=== PATIENT | female | born 1990 | race Caucasian/White ===

== ENCOUNTER 2022-03-08 13:03 | Emergency (ER) | payer OTHER ==
[~2022-03-08] VITALS: Ht 157.5 cm; Wt 68.9 kg
--- NOTE | 2022-03-08 14:05 | NUR ---
DR VALENTIN W/ PT FOR EVAL
[2022-03-08] MEDS ORDERED: ALBUTEROL FS 2.5 MG/3 ML VIAL.NEB NEB ONE (14:30)
[2022-03-08] MEDS ORDERED: IPRATROPIUM NEB FS 0.5 MG/2.5 ML AMPUL.NEB NEB ONE (14:30)
[2022-03-08] MEDS ORDERED: ALBUTEROL FS 2.5 MG/3 ML VIAL.NEB ONE (14:39)
[2022-03-08] MEDS ORDERED: IPRATROPIUM NEB FS 0.5 MG/2.5 ML AMPUL.NEB ONE (14:39)
--- NOTE | 2022-03-08 16:30 | NUR ---
urine sample collected and sent to lab
[2022-03-08] MEDS ORDERED: BENZ-13 PO (18:07)
[2022-03-08] MEDS ORDERED: ALBU8.5H8 INH (18:07)
--- NOTE | 2022-03-08 18:13 | NUR ---
Patient discharged to home in stable condition. Written and verbal after care instructions given. Patient verbalizes understanding of instruction.
[2022-03-08 18:14] VITALS: BP 126/76
== END 2022-03-08 18:16 | disposition home or self-care (01) ==
LOC: ER 13:03
DX: R06.2 Wheezing (principal); U09.9 Post COVID-19 condition, unspecified; Z79.899 Other long term (current) drug therapy
CPT/HCPCS: 71045-TC; 84703-TC

== ENCOUNTER 2022-05-13 11:41 | Emergency (ER) | payer OTHER ==
[~2022-05-13] VITALS: Ht 157.5 cm; Wt 78.9 kg
[~2022-05-13 11:41] MED LIST: ALBU8.5H8 INH; BENZ-13 PO
--- NOTE | 2022-05-13 11:56 | NUR ---
BIBS C/O FELT "LIGHTHEADED" WHILE SITTING WAITING TO GO TO WORK. VITALS WITHIN NORMAL LIMITS. ABLE TO WALK WITHOUT ASSISTANCE. AWAITING MD MICHAEL.
[2022-05-13] MEDS ORDERED: IV NS 0.9% 1,000 ML BAG IV ONE (12:30)
--- NOTE | 2022-05-13 12:48 | NUR ---
IV ESTABLISHED L HAND 22. LABS DRAWNA ND COLLECTED AND BEDSIDE
[2022-05-13 12:53] LABS: BASOPHILS % (AUTO) 0.2 % (0.0-2.0); HEMATOCRIT 41 % (33-45); HEMOGLOBIN 12.9 g/dL (11.5-14.8); LYMPHOCYTES # (AUTO) 1.8 K/uL (0.8-4.8); LYMPHOCYTES % (AUTO) 29.1 % (20.0-44.0); MEAN CORPUSCULAR HGB CONC 31 g/dl (31.0-36.0); MEAN CORPUSCULAR VOLUME 85 fL (82-100); MONOCYTES # (AUTO) 0.6 K/uL (0.1-1.30); MONOCYTES % (AUTO) 9.1 % (2.0-12.0); NEUTROPHILS # (AUTO) 3.1 K/uL (1.8-8.9); NEUTROPHILS % (AUTO) 49.6 % (43.0-81.0); PLATELET COUNT (AUTO) 289 K/uL (150-450); RED BLOOD CELL COUNT(AUTO) 4.86 MIL/uL (4.0-5.2); WHITE BLOOD COUNT (AUTO) 6.2 K/uL (4.3-11.0)
[2022-05-13 13:10] LABS: CALCIUM, SERUM 9.3 mg/dL (8.5-10.1); CARBON DIOXIDE 24 mmol/L (21-32); CHLORIDE 105 mmol/L (98-107); CREATININE 0.9 mg/dL (0.6-1.3); GLUCOSE 87 mg/dL (74-106); POTASSIUM 3.5 mmol/L (3.5-5.1); SODIUM SERUM 139 mmol/L (136-145); UREA NITROGEN, BLOOD 11 mg/dL (7-18)
[2022-05-13 13:16] LABS: ALANINE AMINOTRANSFERASE 23 U/L (12-78); ALBUMIN 3.8 g/dL (3.4-5.0); ALKALINE PHOSPHATASE 90 U/L (46-116); ASPARTATE AMINOTRANSFERASE 21 U/L (15-37); BILIRUBIN,DIRECT 0.2 mg/dL (0.0-0.2); BILIRUBIN,TOTAL 0.5 mg/dL (0.2-1.0); TOTAL PROTEIN, SERUM 8.4 g/dL (6.4-8.2)
--- NOTE | 2022-05-13 15:42 | NUR ---
Updated by MD Verbal instructions by same. Pt given copies of all test Declined to wait/sign for [facility] "i have to go"
[2022-05-13 15:43] VITALS: BP 125/70
== END 2022-05-13 15:45 | disposition home or self-care (01) ==
LOC: ER 11:48
DX: R55 Syncope and collapse (principal); Z79.899 Other long term (current) drug therapy; Z60.2 Problems related to living alone
CPT/HCPCS: 99285; 96360; 71045; 93005; 85025; 80048; 80076; 36415; 84484; J7030

== ENCOUNTER 2022-08-07 12:27 | Emergency (ER) | payer OTHER ==
[~2022-08-07] VITALS: Ht 157.5 cm; Wt 77.1 kg
--- NOTE | 2022-08-07 12:55 | NUR ---
EVERC/O SORE THROAT, FEVER AND CHILLS X 7 DAYS, SEEN A MD GAVE AMOX AND TYLENOL FOR FEVER.
--- NOTE | 2022-08-07 13:08 | NUR ---
URINE PROVIDED , SENT TO LAB
--- NOTE | 2022-08-07 13:12 | NUR ---
DR. BETANCOURT AT BEDSIDE FOR EVAL.
--- NOTE | 2022-08-07 13:28 | NUR ---
THROAT SWAB FOR STD DONE , SENT TO LAB.
[2022-08-07] MEDS ORDERED: CEFTRIAXONE 1 G VIAL IM ONE (13:30)
[2022-08-07] MEDS ORDERED: CEFTRIAXONE 1 G VIAL ONE (13:30)
[2022-08-07 13:32] LABS: BILIRUBIN,URINE 1+ (NEGATIVE); COLOR,URINE DARK YELLOW (YELLOW); LEUKOCYTE ESTERASE ,URINE NEGATIVE (NEGATIVE); NITRITE, URINE NEGATIVE (NEGATIVE); PROTEIN,URINE 3+ mg/dl (NEGATIVE); UGLUCOSE NEGATIVE (NEGATIVE)
--- NOTE | 2022-08-07 13:38 | NUR ---
Patient is resting comfortably in bed with eyes closed. Easily aroused. VSS
--- NOTE | 2022-08-07 13:47 | NUR ---
STREP SWAB DONE, GEN. SWAB FOR THROAT DONE , SENT TO LAB
[2022-08-07 13:55] LABS: RBC,URINE 0-3 /HPF (0-2)
[2022-08-07 13:56] LABS: BACTERIA,URINE 1+ /HPF (None Seen); SQUAMOUS EPITHELIAL CELL,UR Moderate /HPF (None Seen)
[2022-08-07] MEDS ORDERED: DOXY100T2 PO (14:21)
[2022-08-07 14:51] VITALS: BP 120/80
== END 2022-08-07 14:52 | disposition home or self-care (01) ==
LOC: ER 13:00
DX: J02.9 Acute pharyngitis, unspecified (principal); N39.0 Urinary tract infection, site not specified; Z20.2 Contact with and (suspected) exposure to infections with a predominantly sexual mode of transmission; Z79.899 Other long term (current) drug therapy
CPT/HCPCS: 99283; 96372; 87081; 81001; 87880; 87491; 87591; J0696; 86403-TC

== ENCOUNTER 2022-12-31 08:28 | Emergency (ER) | payer OTHER ==
[~2022-12-31] VITALS: Ht 157.5 cm; Wt 79.4 kg
[~2022-12-31 08:28] MED LIST changes: +DOXY100T2 PO
[2022-12-31] MEDS ORDERED: ACETAMINOPHEN ES 500 MG TABLET PO ONE (09:00)
[2022-12-31] MEDS ORDERED: NAPROXEN 250 MG TABLET PO ONE (09:00)
[2022-12-31] MEDS ORDERED: NAPROXEN 250 MG TABLET ONE (09:06)
[2022-12-31] MEDS ORDERED: ACETAMINOPHEN ES 500 MG TABLET ONE (09:06)
[2022-12-31 10:23] VITALS: BP 124/72; TEMP 98; O2SAT 99
== END 2022-12-31 10:23 | disposition home or self-care (01) ==
LOC: ER 08:32
DX: S09.90XA Unspecified injury of head, initial encounter (principal); R51.9 Headache, unspecified; Z60.2 Problems related to living alone; W22.8XXA Striking against or struck by other objects, initial encounter; Y93.89 Activity, other specified; Y92.89 Other specified places as the place of occurrence of the external cause; Y99.0 Civilian activity done for income or pay
CPT/HCPCS: 70450-TC

== ENCOUNTER 2023-04-01 12:34 | Emergency (ER) | payer OTHER ==
[~2023-04-01] VITALS: Ht 157.5 cm; Wt 77.1 kg
[2023-04-01 13:01] VITALS: BP 169/67; TEMP 97.9; O2SAT 100
[2023-04-01] MEDS ORDERED: AMOX-430 PO (14:20)
== END 2023-04-01 14:31 | disposition home or self-care (01) ==
LOC: ER 12:38
DX: J02.9 Acute pharyngitis, unspecified (principal)
CPT/HCPCS: 86403-TC

== ENCOUNTER 2023-06-28 12:34 | Emergency (ER) | payer OTHER ==
[~2023-06-28] VITALS: Ht 157.5 cm; Wt 77.1 kg
[~2023-06-28 12:34] MED LIST changes: +AMOX-430 PO
[2023-06-28 13:25] VITALS: BP 103/64; TEMP 98.7; O2SAT 100
== END 2023-06-28 13:28 | disposition left against medical advice (07) ==
LOC: ER 12:37
DX: Z03.89 Encounter for observation for other suspected diseases and conditions ruled out (principal); Z53.21 Procedure and treatment not carried out due to patient leaving prior to being seen by health care provider

== ENCOUNTER 2023-08-22 15:34 | Emergency (ER) | payer OTHER ==
[~2023-08-22] VITALS: Ht 157.5 cm; Wt 79.4 kg
[2023-08-22 16:27] LABS: BASOPHILS # (AUTO) 0.1 K/uL (0.0-0.2); BASOPHILS % (AUTO) 0.9 % (0.0-2.0); EOSINOPHILS # (AUTO) 0.6 K/uL (0.0-0.7); EOSINOPHILS % (AUTO) 9.4 % (0.0-6.0); HEMATOCRIT 41 % (33-45); HEMOGLOBIN 13.7 g/dL (11.5-14.8); LYMPHOCYTES # (AUTO) 1.9 K/uL (0.8-4.8); LYMPHOCYTES % (AUTO) 32.4 % (20.0-44.0); MEAN CORPUSCULAR HEMOGLOBIN 29 PG (26.0-33.0); MEAN CORPUSCULAR HGB CONC 34 g/dl (31.0-36.0); MEAN CORPUSCULAR VOLUME 87 fL (82-100); MONOCYTES # (AUTO) 0.4 K/uL (0.1-1.30); MONOCYTES % (AUTO) 7.6 % (2.0-12.0); NEUTROPHILS # (AUTO) 2.9 K/uL (1.8-8.9); NEUTROPHILS % (AUTO) 49.7 % (43.0-81.0); PLATELET COUNT (AUTO) 257 K/uL (150-450); RED BLOOD CELL COUNT(AUTO) 4.66 MIL/uL (4.0-5.2); RED CELL DISTRIBUTION WIDTH 13.5 % (11.5-15.0); WHITE BLOOD COUNT (AUTO) 5.9 K/uL (4.3-11.0)
[2023-08-22 16:41] LABS: PREGNANCY TEST URINE QUAL NEGATIVE (NEGATIVE)
[2023-08-22 16:41] LABS: CALCIUM, SERUM 9.1 mg/dL (8.5-10.1); CARBON DIOXIDE 27 mmol/L (21-32); CHLORIDE 102 mmol/L (98-107); CREATININE 0.9 mg/dL (0.6-1.3); GLUCOSE 101 mg/dL (74-106); POTASSIUM 3.8 mmol/L (3.5-5.1); SODIUM SERUM 140 mmol/L (136-145); UREA NITROGEN, BLOOD 7 mg/dL (7-18)
[2023-08-22 17:40] VITALS: BP 120/69; TEMP 98.2; O2SAT 98
== END 2023-08-22 17:41 | disposition home or self-care (01) ==
LOC: ER 15:37
DX: R07.2 Precordial pain (principal); F19.10 Other psychoactive substance abuse, uncomplicated; Z60.2 Problems related to living alone
CPT/HCPCS: 36415; 71045-TC; 80048-TC; 84484-TC; 84703-TC; 85025-TC